=== PATIENT | male | born 1990 | race Caucasian/White ===

== ENCOUNTER 2016-04-30 11:52 | Emergency (ER) | payer BC ==
[2016-04-30 11:59] VITALS: TEMP 99
--- NOTE | 2016-04-30 12:11 | EDPHY ---
H & P Stated Complaint: URI sxs,fatigue, fever since last week;currently under tx for leukemia Time Seen by Provider: 04/30/16 12:10 - Personal History Current Tetanus Diphtheria and Acellular Pertussis (TDAP): Yes Tetanus Vaccine Date: 2011 - Medical/Surgical History Hx Asthma: No Hx Chronic Respiratory Disease: No Hx Diabetes: No Hx Cardiac Disease: No Hx Renal Disease: No Hx Cirrhosis: No Hx Alcoholism: No Hx HIV/AIDS: No Hx Splenectomy or Spleen Trauma: No Other PMH: pmh:FACIAL MIGRAINES 2014. PSH: DENTAL. wisdom tooth removed 2011, anxiety-pt on zoloft, Acute Lymphoblastic leukemia. ALL, induction ctx started 07/2014 - Social History Smoking Status: Never smoked Constitutional: Initial Vital Signs Temperature (C) 37.2 C 04/30/16 11:55 Heart Rate 107 H 04/30/16 11:55 Respiratory Rate 18 04/30/16 11:55 Blood Pressure 136/88 H 04/30/16 11:55 O2 Sat (%) 95 04/30/16 11:55 O2 Delivery Mode Room Air Allergies/Adverse Reactions: No Known Allergies Allergy (Verified 04/30/16 11:59) Home Medications: Medication Instructions Recorded Sertraline HCl [Zoloft 50mg (*)] 8 mg PO DAILY 07/07/14 Acyclovir [Zovirax 200 mg (*)] 200 mg PO BID 08/11/14 LORazepam [Ativan (*)] 0.5 mg PO Q4 PRN 08/11/14 levOFLOXACIN [levAQUIN (*)] 500 mg PO DAILY 08/11/14 Fluconazole [Diflucan (*)] 100 mg PO HS 10/17/14 Methotrexate IV 11/15/15 HYDROcodone/HOMATROPINE HYCODA 1 tsp PO Q4-6PRN PRN #120 ml 04/30/16 [Hycodan Syrup (RX)] Mercaptopurine [Purinethol 50 mg 50 mg PO 04/30/16 (*)] Medical Decision Making ED Course/Re-evaluation: CHIEF COMPLAINT: Cough and fever HISTORY OF PRESENT ILLNESS: 25-year-old gentleman who has had a cough and mild fever for 2-3 days. The fevers been about 100-101. He is currently being treated with intrathecal chemotherapeutic an oral chemotherapeutic for leukemia. His last treatment was a couple of weeks ago. He denies any significant systemic illness except for some mild fever. He states that he is on Levaquin, acyclovir, fluconazole as prophylactic medicines. His doctor wanted him to be checked because the cough was becoming slightly more persistent. REVIEW OF SYSTEMS: A 10 point review of systems was performed and is negative with the exception of the elements mentioned in the history of present illness. PHYSICAL EXAM: HR, BP, O2 Sat, RR. Temp noted General Appearance: Alert, well hydrated, appropriate, and non-toxic appearing. Head: Atraumatic without scalp tenderness or obvious injury Eyes: Pupils equal, round, reactive to light and accommodation, EOMI, no trauma , no injection. Ears: Clear bilaterally, no perforation, normal landmarks Nose: Atraumatic, no rhinorrhea, clear. Throat: There is no erythema or exudates, no lesions, normal tonsils, mucus membranes moist. Neck: Supple, 2+ carotid upstroke, nontender, no lymphadenopathy. Respiratory: No retractions, no distress, no wheezes, and no accessory muscle use. Lungs are clear to auscultation bilaterally. Cardiovascular: Regular rate and rhythm, no murmurs, rubs, or gallops. Bilateral carotid, radial, dorsalis pedis, and posterior tibial pulses intact. Good capillary refill all extremities. Gastrointestinal: Abdomen is soft, nontender, non-distended, no masses, no rebound, no guarding, no peritoneal signs. Musculoskeletal: Normal active ROM of all extremities, atraumatic. Neurological: Alert, appropriate, and interactive. The patient has normal DTRs and non-focal cranial nerves, motor, sensory, and cerebellar exam. Skin: No rashes, good turgor, no nodules on palpation. Past medical history: Leukemia Past surgical history: Surgery related to the kidney Family history: Noncontributory Social history: , employed, does not abuse tobacco drugs or alcohol DIAGNOSTICS/PROCEDURES/CRITICAL CARE TIME: Study: PA and Lateral Chest X-ray Indication: cough Results: After viewing the images myself on the PACS system. My interpretation of the images is: no acute process. Dr. Colin agrees. I have discussed the above x-rays with the radiologist. DIFFERENTIAL DIAGNOSIS: The differential diagnosis for the patient's fever included but was not limited to pneumonia, urinary tract infection, viral syndrome, meningitis, and sepsis. MEDICAL DECISION MAKING: This patient does not appear systemically ill. He is in no acute distress. Laboratory studies are pending so that I can panel beater his level of immunocompromise. Patient's WBC is low around 1, however he is afebrile and not ill-appearing here. Chest x-ray is negative. I discussed these results with the patient and recommend discharge home and follow up with his oncologist tomorrow. He notes that he has been sick before during therapy and does not feel similarly sick today. He will be given Hycodan elixir to use as needed for cough. He agrees with this plan. Return precautions given. - Data Points Laboratory Results: Laboratory Results 04/30/16 12:30 04/30/16 12:30 04/30/16 12:30 WBC 1.02 L 10^3/uL (3.80-9.50) RBC 4.05 L 10^6/uL (4.40-6.38) Hgb 13.7 g/dL (13.7-17.5) Hct 40.6 % (40.0-51.0) MCV 100.2 H fL (81.5-99.8) MCH 33.8 pg (27.9-34.1) MCHC 33.7 g/dL (32.4-36.7) RDW 15.1 % (11.5-15.2) Plt Count 152 10^3/uL (150-400) MPV 9.7 fL (8.7-11.7) Neut % (Auto) Not Reported Lymph % (Auto) Not Reported [place] % (Auto) Not Reported Eos % (Auto) Not Reported Baso % (Auto) Not Reported Nucleat RBC Rel Count 0.0 % (0.0-0.2) Absolute Neuts (auto) Not Reported Absolute Lymphs (auto) Not Reported Absolute Monos (auto) Not Reported Absolute Eos (auto) Not Reported Absolute Basos (auto) Not Reported Absolute Nucleated RBC 0.00 10^3/uL (0-0.01) Immature Gran % Not Reported Immature Gran # Not Reported Platelet Estimate Pending PT 15.2 H SEC (12.0-15.0) INR 1.20 H (0.83-1.16) APTT 41.5 H SEC (23.0-38.0) VBG Lactic Acid 2.0 mmol/L (0.7-2.1) Sodium 142 mEq/L (134-144) Potassium 4.1 mEq/L (3.5-5.2) Chloride 104 mEq/L (97-110) Carbon Dioxide 28 mEq/l (22-31) Anion Gap 10 mEq/L (8-16) BUN 11 mg/dL (7-23) Creatinine 0.6 L mg/dL (0.7-1.3) Estimated GFR > 60 Glucose 128 H mg/dL (70-100) Calcium 9.1 mg/dL (8.5-10.4) Total Bilirubin 2.3 H mg/dL (0.1-1.4) Conjugated Bilirubin 0.7 H mg/dL (0.0-0.5) Unconjugated Bilirubin 1.6 H mg/dL (0.0-1.1) Departure - Departure Disposition: Home, Routine, Self-Care Clinical Impression: Leukemia, Cough, Viral syndrome Condition: Good Instructions: Viral Syndrome (ED) Additional Instructions: 1. Continue all medications as directed. 2. Follow up with your oncologist tomorrow. 3. Return for worsening of condition. Referrals: Jeffry Last MD [Primary Care Provider] - As per Instructions
[2016-04-30 12:57] LABS: INR 1.2 (0.83-1.16); PROTIME(PATIENT) 15.2 SEC (12.0-15.0)
[2016-04-30 12:58] LABS: APTT 41.5 SEC (23.0-38.0)
[2016-04-30 13:21] LABS: ADD DIFF? YES; ADD MORPH? NO; ADD SCAN? NO; ANION GAP 10 mEq/L (8-16); ATYPICAL LYMPHOCYTE FLAG 40 (0-99); BILIRUBIN,TOTAL 2.3 mg/dL (0.1-1.4); CALCIUM 9.1 mg/dL (8.5-10.4); CARBON DIOXIDE 28 mEq/l (22-31); CHLORIDE 104 mEq/L (97-110); CREATININE 0.6 mg/dL (0.7-1.3); FRAGMENT RBC FLAG 0 (0-99); GLOMERULAR FILTRATION RATE > 60; GLUCOSE 128 mg/dL (70-100); HEMATOCRIT 40.6 % (40.0-51.0); HEMOGLOBIN 13.7 g/dL (13.7-17.5); LEFT SHIFT FLG 90 (0-99); LIPEMIA HEMOLYSIS FLAG 80 (0-99); MEAN CELL HEMOGLOBIN 33.8 pg (27.9-34.1); MEAN CELL HEMOGLOBIN CONCENTR. 33.7 g/dL (32.4-36.7); MEAN CELL VOLUME 100.2 fL (81.5-99.8); MEAN PLATELET VOLUME 9.7 fL (8.7-11.7); PLATELET CLUMPS FLAG 0 (0-99); PLATELET COUNT 152 10^3/uL (150-400); POTASSIUM 4.1 mEq/L (3.5-5.2); RED BLOOD CELL COUNT 4.05 10^6/uL (4.40-6.38); RED CELL DISTRIBUTION WIDTH 15.1 % (11.5-15.2); SODIUM 142 mEq/L (134-144)
[2016-04-30 13:38] LABS: BILIRUBIN-CONJUGATED 0.7 mg/dL (0.0-0.5); BILIRUBIN-UNCONJUGATED 1.6 mg/dL (0.0-1.1)
--- NOTE | 2016-04-30 13:48 | DX ---
Chest, PA and Lateral April 30, 2016 History: History of leukemia. Fever and cough. Comparison: December 2014. Findings: A right Deeadj-h-Xrit catheter is seen in stable position with its tip in the superior vena cava. Heart size is within normal limits. Pulmonary vascularity appears normal. The lungs are clear. No evidence for pleural effusion or pneumothorax. No significant osseous abnormality. Impression: No evidence for acute cardiopulmonary abnormality.
[2016-04-30 14:12] VITALS: BP 123/79; PULSE 85; RESP 12; O2SAT 94
[2016-04-30 15:44] LABS: ELLIPTOCYTES 1+; PLATELET ESTIMATE ADEQUATE (ADEQ); POLYCHROMASIA 1+
[2016-04-30 15:46] LABS: SCHISTOCYTES 1+
== END 2016-04-30 14:17 | disposition home or self-care (01) ==
DX: B34.9 Viral infection, unspecified (principal); C95.90 Leukemia, unspecified not having achieved remission

== ENCOUNTER → 2016-05-09 | Outpatient (CLI) | payer BC ==
[~2016-05-09] MED LIST: LIDOCAINE 1% 30 ML SDV ONE; METHOTREXATE SODIUM IT ONE; NA BICARBONATE 50 MEQ/50 ML VIAL ONE; NS IT ONE
[2016-05-09 10:56] LABS: CSF APPEARANCE CLEAR (CLEAR); CSF COLOR COLORLESS (COLORLESS); WBC, CSF 0 /mm3 (0-5)
[2016-05-09 11:23] LABS: PROTEIN, CSF 20 mg/dL (12-60)
--- NOTE | 2016-05-09 11:57 | DX ---
Fluoroscopically Guided Lumbar Puncture and Intrathecal Chemotherapy Administration History: Acute lymphoblastic leukemia . Crosscutting Measure #226: Current tobacco user: No. Comparison: Lumbar puncture February 14, 2016. Procedure: Prior to the procedure, the risks and benefits, including headache, infection, and bleedin g were explained to the patient and informed written consent was obtained. An area over L2-L3 was ma rked then prepped and draped in the usual sterile fashion. Buffered lidocaine was administered super ficially for local anesthesia. Using intermittent fluoroscopic observation, a 25-gauge Cristine spina l needle was advanced into the thecal sac. 12 mL of clear CSF was obtained and sent for labs. Subseq uently, 15 mg methotrexate was administered slowly. The needle was removed and a bandage applied. Th e patient tolerated the procedure well with no immediate complications. 0.2 minutes of fluoroscopy were utilized. Dose= 1.5 mGy. Impression: Fluoroscopically guided lumbar puncture and intrathecal chemotherapy administration as ab ove.
[2016-05-11 09:48] LABS: FINAL DIAGNOSIS See Comments (()); MICROSCOPIC DESCRIPTION See Comments (()); SPECIAL STUDIES See Comments (())
== END ==
LOC: FIMAGING 09:09
PROVIDERS: ATTEND Internal Medicine Hematology & Oncology
DX: Z51.11 Encounter for antineoplastic chemotherapy (principal); C91.00 Acute lymphoblastic leukemia not having achieved remission
CPT/HCPCS: 85060-90; 88184-90; 88185-91; J9250

== ENCOUNTER → 2016-08-01 | Outpatient (CLI) | payer BC, OTHER | LOC: FIMAGING 09:03 | PROVIDERS: ATTEND Internal Medicine Hematology & Oncology | PROC: 3E0R305 Introduction of Other Antineoplastic into Spinal Canal, Percutaneous Approach (ICD-10-PCS; principal; 2016-08-01) | DX: Z51.11 Encounter for antineoplastic chemotherapy (principal); C91.00 Acute lymphoblastic leukemia not having achieved remission | CPT/HCPCS: J9250 ==

== ENCOUNTER 2016-08-09 01:56 | Emergency (ER) | payer BC, OTHER ==
[2016-08-09 02:01] VITALS: RESP 16; TEMP 98.4; O2SAT 96
[2016-08-09] MEDS ORDERED: NS 1,000 ML IV ONE (02:07)
[2016-08-09] MEDS ORDERED: ONDANSETRON 4 MG/2 ML VIAL ONE (02:10)
[2016-08-09] MEDS ORDERED: FAMOTIDINE 20 MG TAB PO ONE (02:24)
[2016-08-09] MEDS ORDERED: ONDANSETRON 4 MG/2 ML VIAL IVP ONE ×2 (02:24)
[2016-08-09] MEDS ORDERED: HYDROmorphONE/DILAUDID 1 MG/ML SYR IVP ONE (02:24)
--- NOTE | 2016-08-09 02:24 | EDPHY ---
H & P Stated Complaint: ABD PAIN AND VOMITING HX OF PANCREATITIS Time Seen by Provider: 08/09/16 02:04 HPI/ROS: HPI The patient presents with abdominal pain associated with nausea and vomiting. He has had mild pain for the last several days since starting his steroids which he takes is part of his chemotherapy for ALL. However, the pain became severe tonight and he could not get comfortable. It is a sharp pain in his upper abdomen that comes in waves, it is moderate in severity and actually has improved since his arrival in the ER. REVIEW OF SYSTEMS Constitutional: No fever, no chills. Eyes: No discharge. ENT: No sore throat. Cardiovascular: No chest pain, no palpitations. Respiratory: No cough, no shortness of breath. Gastrointestinal: See HPI Genitourinary: No hematuria. Musculoskeletal: No back pain. Skin: No rashes. Neurological: No headache. PMHx: ALL on chemotherapy PHYSICAL General Appearance: Alert, no distress Eyes: Pupils equal and round no pallor or injection ENT, Mouth: Mucous membranes moist Respiratory: There are no retractions, lungs are clear to auscultation Cardiovascular: Regular rate and rhythm Gastrointestinal: Abdomen is soft and with mild tenderness in the epigastrium, no masses Neurological: A&O, moves all extremities Skin: Warm and dry, no rashes Musculoskeletal: Neck is supple non tender Extremities: symmetrical, full range of motion Psychiatric: Patient is oriented X 3, there is no agitation Source: Patient Exam Limitations: No limitations - Personal History Current Tetanus/Diphtheria Vaccine: Yes Current Tetanus Diphtheria and Acellular Pertussis (TDAP): Yes Tetanus Vaccine Date: 2011 - Medical/Surgical History Hx Asthma: No Hx Chronic Respiratory Disease: No Hx Diabetes: No Hx Cardiac Disease: No Hx Renal Disease: No Hx Cirrhosis: No Hx Alcoholism: No Hx HIV/AIDS: No Hx Splenectomy or Spleen Trauma: No Other PMH: pmh:FACIAL MIGRAINES 2014. PSH: DENTAL. wisdom tooth removed 2011, anxiety-pt on zoloft, Acute Lymphoblastic leukemia, pancreatitis. ALL, induction ctx started 07/2014 - Social History Smoking Status: Never smoked Constitutional: Initial Vital Signs Temperature (C) 36.9 C 08/09/16 01:59 Heart Rate 77 08/09/16 01:59 Respiratory Rate 16 08/09/16 01:59 Blood Pressure 111/79 08/09/16 01:59 O2 Sat (%) 96 08/09/16 01:59 O2 Delivery Mode Room Air Allergies/Adverse Reactions: No Known Allergies Allergy (Verified 08/09/16 02:01) Home Medications: Medication Instructions Recorded Sertraline HCl [Zoloft 50mg (*)] 8 mg PO DAILY 07/07/14 Acyclovir [Zovirax 200 mg (*)] 200 mg PO BID 08/11/14 LORazepam [Ativan (*)] 0.5 mg PO Q4 PRN 08/11/14 Fluconazole [Diflucan (*)] 100 mg PO HS 10/17/14 Methotrexate IV 11/15/15 Mercaptopurine [Purinethol 50 mg 50 mg PO 04/30/16 (*)] morphINE IR [morphINE IR 15 mg (*)] 15 mg PO Q4H PRN #10 tab 08/09/16 Medical Decision Making Differential Diagnosis: This is a 25-year-old male with history ALL who presents from home with abdominal pain, consistent with prior pancreatitis episodes which seems to be steroid induced. Differential diagnosis includes pancreatitis, gastritis, less likely hepatitis. In the emergency room, the patient was given IV fluids for hypovolemia, antiemetics and pain medicine with improvement in his symptoms. Labs were checked and did reveal an elevated lipase consistent with pancreatitis. Liver tests were also elevated and because of this, bedside right upper quadrant ultrasound was performed which showed no evidence of gallstones. The patient was discharged from the emergency room with pain medication and instructions to take Tylenol as needed for pain. - Data Points Laboratory Results: Laboratory Results 08/09/16 02:15 08/09/16 02:15 08/09/16 08/09/16 02:15 02:15 WBC 1.64 10^3/uL L 10^3/uL (3.80-9.50) RBC 4.38 10^6/uL L 10^6/uL (4.40-6.38) Hgb 13.2 g/dL L g/dL (13.7-17.5) Hct 38.7 % L % (40.0-51.0) MCV 88.4 fL fL (81.5-99.8) MCH 30.1 pg pg (27.9-34.1) MCHC 34.1 g/dL g/dL (32.4-36.7) RDW 12.8 % % (11.5-15.2) Plt Count 159 10^3/uL 10^3/uL (150-400) MPV 10.4 fL fL (8.7-11.7) Neut % (Auto) Not Reported Lymph % (Auto) Not Reported [place] % (Auto) Not Reported Eos % (Auto) Not Reported Baso % (Auto) Not Reported Nucleat RBC Rel Count 0.0 % % (0.0-0.2) Absolute Neuts (auto) Not Reported Absolute Lymphs (auto) Not Reported Absolute Monos (auto) Not Reported Absolute Eos (auto) Not Reported Absolute Basos (auto) Not Reported Absolute Nucleated RBC 0.00 10^3/uL 10^3/uL (0-0.01) Immature Gran % Not Reported Seg Neutrophils % 57 % % Band Neutrophils % 8 % % Lymphocytes % 13 % % Monocytes % 9 % % Eosinophils % 11 % % Metamyelocytes % 1 % % Myelocytes % 1 % % Immature Gran # Not Reported Absolute Seg Neuts 0.93 10^/uL L 10^/uL (1.70-6.50) Absolute Band Neuts 0.13 10^3/uL 10^3/uL (0.00-0.70) Absolute Lymphocytes 0.21 10^3/uL L 10^3/uL (1.00-3.00) Absolute Monocytes 0.15 10^3/uL L 10^3/uL (0.30-0.80) Absolute Eosinophils 0.18 10^3/uL 10^3/uL (0.03-0.40) Absolute Metamyelocyte 0.02 10^3/mL H 10^3/mL (0.00-0.00) Absolute Myelocytes 0.02 10^3/mL H 10^3/mL (0.00-0.00) Toxic Granulation PRESENT H Platelet Estimate ADEQUATE (ADEQ) Large Platelets PRESENT H Microcytic Cells 1+ H Elliptocytes 1+ H Smear Review By Pending Sodium 136 mEq/L mEq/L (134-144) Potassium 3.6 mEq/L mEq/L (3.5-5.2) Chloride 101 mEq/L mEq/L (97-110) Carbon Dioxide 28 mEq/l mEq/l (22-31) Anion Gap 7 mEq/L L mEq/L (8-16) BUN 16 mg/dL mg/dL (7-23) Creatinine 0.5 mg/dL L mg/dL (0.7-1.3) Estimated GFR > 60 Glucose 119 mg/dL H mg/dL (70-100) Calcium 8.9 mg/dL mg/dL (8.5-10.4) Total Bilirubin 1.9 mg/dL H mg/dL (0.1-1.4) Conjugated Bilirubin 0.3 mg/dL mg/dL (0.0-0.5) Unconjugated Bilirubin 1.6 mg/dL H mg/dL (0.0-1.1) AST 100 IU/L H IU/L (17-59) ALT 244 IU/L H IU/L (21-72) Alkaline Phosphatase 108 IU/L IU/L (38-126) Total Protein 5.7 g/dL L g/dL (6.3-8.2) Albumin 3.6 g/dL g/dL (3.5-5.0) Lipase 3836.0 IU/L H IU/L (23-300) Medications Given: Discontinued Medications Famotidine (Pepcid) 20 mg PO EDNOW ONE Stop: 08/09/16 02:25 Last Admin: 08/09/16 02:38 Dose: Not Given Famotidine (Pepcid) 20 mg IVP EDNOW ONE Stop: 08/09/16 02:38 Last Admin: 08/09/16 02:38 Dose: 20 mg Hydromorphone HCl (Dilaudid) 0.5 mg IVP EDNOW ONE Stop: 08/09/16 02:25 Last Admin: 08/09/16 02:38 Dose: 0.5 mg Sodium Chloride (Ns) 1,000 mls @ 0 mls/hr IV ONCE ONE PRN Reason: Wide Open Stop: 08/09/16 02:08 Last Admin: 08/09/16 02:28 Dose: 1,000 mls Ondansetron HCl (Zofran) 4 mg IVP EDNOW ONE Stop: 08/09/16 02:25 Last Admin: 08/09/16 02:29 Dose: Not Given Ondansetron HCl (Zofran) 4 mg IVP EDNOW ONE Stop: 08/09/16 02:25 Last Admin: 08/09/16 02:28 Dose: 4 mg Departure - Departure Disposition: Home, Routine, Self-Care Clinical Impression: Pancreatitis, acute Qualifiers: Pancreatitis type: other Acute pancreatitis complication: unspecified Qualified Code(s): K85.80 - Other acute pancreatitis without necrosis or infection Condition: Good Instructions: Pancreatitis (ED), Clear Liquid Diet (ED) Additional Instructions: Please take a clear diet until you're feeling better. Then you can start eating bland foods until you're feeling completely better. Take Tylenol 1 g every 6 hours as needed for pain. If the pain is more severe you can take the prescription pain medicine I am discharging you with. Referrals: Jeffry Last MD [Primary Care Provider] - As per Instructions Prescriptions: morphINE IR [morphINE IR 15 mg (*)] 15 mg PO Q4H PRN #10 tab PRN Reason: Pain, Breakthrough
[2016-08-09 02:30] LABS: ADD DIFF? YES; ADD MORPH? NO; ATYPICAL LYMPHOCYTE FLAG 0 (0-99); FRAGMENT RBC FLAG 0 (0-99); HEMATOCRIT 38.7 % (40.0-51.0); HEMOGLOBIN 13.2 g/dL (13.7-17.5); LIPEMIA HEMOLYSIS FLAG 90 (0-99); MEAN CELL HEMOGLOBIN 30.1 pg (27.9-34.1); MEAN CELL HEMOGLOBIN CONCENTR. 34.1 g/dL (32.4-36.7); MEAN CELL VOLUME 88.4 fL (81.5-99.8); MEAN PLATELET VOLUME 10.4 fL (8.7-11.7); PLATELET CLUMPS FLAG 0 (0-99); PLATELET COUNT 159 10^3/uL (150-400); RED BLOOD CELL COUNT 4.38 10^6/uL (4.40-6.38); RED CELL DISTRIBUTION WIDTH 12.8 % (11.5-15.2)
[2016-08-09 02:33] LABS: ADD SCAN? NO; LEFT SHIFT FLG 110 (0-99)
[2016-08-09] MEDS ORDERED: FAMOTIDINE 20 MG/2 ML SDV ONE (02:33)
[2016-08-09] MEDS ORDERED: FAMOTIDINE 20 MG/2 ML SDV IVP ONE (02:37)
[2016-08-09 02:39] LABS: ALANINE AMINOTRANSFERASE 244 IU/L (21-72); ALBUMIN 3.6 g/dL (3.5-5.0); ALKALINE PHOSPHATASE 108 IU/L (38-126); ANION GAP 7 mEq/L (8-16); ASPARTATE AMINOTRANSFERASE 100 IU/L (17-59); BILIRUBIN,TOTAL 1.9 mg/dL (0.1-1.4); BILIRUBIN-CONJUGATED 0.3 mg/dL (0.0-0.5); BILIRUBIN-UNCONJUGATED 1.6 mg/dL (0.0-1.1); CALCIUM 8.9 mg/dL (8.5-10.4); CARBON DIOXIDE 28 mEq/l (22-31); CHLORIDE 101 mEq/L (97-110); CREATININE 0.5 mg/dL (0.7-1.3); GLOMERULAR FILTRATION RATE > 60; GLUCOSE 119 mg/dL (70-100); POTASSIUM 3.6 mEq/L (3.5-5.2); SODIUM 136 mEq/L (134-144); TOTAL PROTEIN 5.7 g/dL (6.3-8.2)
[2016-08-09 03:29] VITALS: BP 113/68; PULSE 72
[2016-08-09 03:39] LABS: ELLIPTOCYTES 1+; LARGE PLATELETS PRESENT; MICROCYTES 1+; PLATELET ESTIMATE ADEQUATE (ADEQ); TOXIC GRANULATION PRESENT
== END 2016-08-09 03:30 | disposition home or self-care (01) ==
DX: K85.80 Other acute pancreatitis without necrosis or infection (principal); C91.00 Acute lymphoblastic leukemia not having achieved remission
CPT/HCPCS: 96374; J1170; J2405

== ENCOUNTER → 2016-10-30 | Outpatient (CLI) | payer BC ==
[~2016-10-30] MED LIST changes: -LIDOCAINE 1% 30 ML SDV ONE; +LIDOCAINE 1% 300 MG/30 ML SDV ONE; -NA BICARBONATE 50 MEQ/50 ML VIAL ONE
[2016-10-30 12:54] LABS: CSF APPEARANCE CLEAR (CLEAR); CSF COLOR COLORLESS (COLORLESS); CSF SUPERNATANT COLORLESS (COLORLESS); WBC, CSF 0 /mm3 (0-5)
[2016-10-30 13:21] LABS: PROTEIN, CSF 17 mg/dL (12-60)
[2016-10-31 16:14] LABS: FINAL DIAGNOSIS See Comments; MICROSCOPIC DESCRIPTION See Comments; SPECIAL STUDIES See Comments
== END ==
LOC: FIMAGING 10:21
PROVIDERS: ATTEND Internal Medicine Hematology & Oncology
PROC: 3E0R305 Introduction of Other Antineoplastic into Spinal Canal, Percutaneous Approach (ICD-10-PCS; principal; 2016-10-30)
DX: Z51.11 Encounter for antineoplastic chemotherapy (principal); C91.00 Acute lymphoblastic leukemia not having achieved remission
CPT/HCPCS: 85060-90; 88184-90; 88185-91; J9250

== ENCOUNTER → 2017-01-29 | Outpatient (CLI) | payer BC | LOC: FIMAGING 09:01 | PROVIDERS: ATTEND Internal Medicine Hematology & Oncology | PROC: 3E0R305 Introduction of Other Antineoplastic into Spinal Canal, Percutaneous Approach (ICD-10-PCS; principal; 2017-01-29) | DX: Z51.11 Encounter for antineoplastic chemotherapy (principal); C91.00 Acute lymphoblastic leukemia not having achieved remission | CPT/HCPCS: J9250 ==

== ENCOUNTER → 2017-04-27 | Outpatient (CLI) | payer BC ==
[~2017-04-27] MED LIST changes: -METHOTREXATE SODIUM IT ONE; +METHOTREXATE SODIUM/PF 15 MG in NS (SYRINGE) 3 ML IT ONE; -NS IT ONE
[2017-04-27 09:48] LABS: INR 1.23 (0.83-1.16); PROTIME(PATIENT) 15.7 SEC (12.0-15.0)
== END ==
LOC: FIMAGING 08:52
PROVIDERS: ATTEND Internal Medicine Hematology & Oncology
PROC: 009U3ZX Drainage of Spinal Canal, Percutaneous Approach, Diagnostic (ICD-10-PCS; principal; 2017-04-27)
DX: C91.90 Lymphoid leukemia, unspecified not having achieved remission (principal)
CPT/HCPCS: J9250

== ENCOUNTER → 2017-06-01 | Outpatient (CLI) | payer BC | LOC: FIMAGING 09:28 | PROVIDERS: ATTEND Internal Medicine Hematology & Oncology | DX: K80.20 Calculus of gallbladder without cholecystitis without obstruction (principal); K86.3 Pseudocyst of pancreas ==

== ENCOUNTER → 2017-06-12 | Outpatient (CLI) | payer BC | LOC: FIMAGING 12:43 | PROVIDERS: ATTEND Internal Medicine Hematology & Oncology | DX: K82.8 Other specified diseases of gallbladder (principal) | CPT/HCPCS: 78227; A9537 ==

== ENCOUNTER 2017-07-13 07:04 | Day surgery (SDC) | payer BC ==
[2017-07-13] MEDS ORDERED: LIDOCAINE 1% 2 ML INJ ID PRN (07:28)
[2017-07-13] MEDS ORDERED: ceFAZolin 2 GM/SWFI 2 GM/20 ML SYR IVP ONE (07:28)
[2017-07-13] MEDS ORDERED: LR 1,000 ML IV ONE (07:28)
[2017-07-13] MEDS ORDERED: fentaNYL 100 MCG/2 ML INJ IVP PRN (07:51)
[2017-07-13] MEDS ORDERED: HYDROmorphONE/DILAUDID 1 MG/ML INJ IVP PRN (07:51)
[2017-07-13] MEDS ORDERED: NALOXONE HCL 0.4 MG/ML INJ IVP PRN (07:51)
[2017-07-13] MEDS ORDERED: ALBUTEROL 3 ML DEYVIAL IH PRN (07:51)
[2017-07-13] MEDS ORDERED: ONDANSETRON 4 MG/2 ML VIAL IVP PRN ×2 (07:51→09:50)
[2017-07-13] MEDS ORDERED: DEXAMETHASONE 4 MG/ML VIAL IVP PRN (07:51)
[2017-07-13] MEDS ORDERED: MIDAZOLAM 2 MG/2 ML VIAL IVP ONE (07:51)
[2017-07-13] MEDS ORDERED: HYDROCODONE/APAP 5/325 TAB PO PRN (07:51)
--- NOTE | 2017-07-13 07:53 | PDANEPAE ---
ANE History of Present Illness Neto Leal HEAVEN Past Medical History - Cardiovascular History Hx Hypertension: No Hx Arrhythmias: No Hx Chest Pain: No Hx Coronary Artery / Peripheral Vascular Disease: No Hx CHF / Valvular Disease: No Hx Palpitations: No - Pulmonary History Hx COPD: No Hx Asthma/Reactive Airway Disease: No Hx Recent Upper Respiratory Infection: No Hx Oxygen in Use at Home: No Hx Sleep Apnea: No Sleep Apnea Screening Result - Last Documented: Negative Pulmonary History Comment: hx of PE - Neurologic History Hx Cerebrovascular Accident: No Hx Seizures: No Hx Dementia: No - Endocrine History Hx Diabetes: No - Renal History Hx Renal Disorders: No - Liver History Hx Hepatic Disorders: Yes Hepatic History Comment: high bilirubin chronic - Neurological & Psychiatric Hx Hx Neurological and Psychiatric Disorders: Yes Neurological / Psychiatric History Comment: hx of neuropathy chemo induced. anxiety - Cancer History Hx Cancer: Yes Cancer History Comment: Leukemia - Congenital Disorder History Hx Congenital Disorders: No - GI History Hx Gastrointestinal Disorders: Yes Gastrointestinal History Comment: reflux - Other Health History Other Health History: parylised vocal chord - Chronic Pain History Chronic Pain: No - Surgical History Prior Surgeries: port placed ANE Review of Systems Review of Systems: - Exercise capacity METS (RN): 4 METS ANE Patient History - Allergies Allergies/Adverse Reactions: No Known Allergies Allergy (Verified 07/03/17 12:41) - Home Medications Home Medications: Sertraline HCl [Zoloft 50mg (*)] 50 mg PO DAILY 07/07/14 [Last Taken 01/13/15] Acyclovir [Zovirax 200 mg (*)] 200 mg PO BID 08/11/14 [Last Taken 01/13/15] LORazepam [Ativan (*)] 0.5 mg PO Q4 PRN 08/11/14 [Last Taken 01/12/15] Methotrexate PO DAILY 11/15/15 [Last Taken Unknown] Mercaptopurine [Purinethol 50 mg (*)] 50 mg PO 04/30/16 [Last Taken Unknown] - Smoking Hx Smoking Status: Never smoked - Family Anes Hx Family Hx Anesthesia Complications: none ANE Labs/Vital Signs - Vital Signs Height: 177.8 cm Weight: 74.843 kg ANE Physical Exam - Airway Neck exam: FROM Mallampati Score: Class 2 - Pulmonary Pulmonary: clear to auscultation - Cardiovascular Cardiovascular: regular rate and rhythym - ASA Status ASA Status: III ANE Anesthesia Plan Anesthesia Plan: general endotracheal anesthesia
[2017-07-13] MEDS ORDERED: BUPIVACAINE 0.25% 30 ML SDV ONE (08:01)
[2017-07-13] MEDS ORDERED: IOTHALAMATE MEG (CONRAY) 50 ML VIAL IV ONE (08:02)
--- NOTE | 2017-07-13 08:07 | PDHPUP ---
History & Physical Update H&P update statement: This history and physical update is based on an assessment of the patient which was completed after admission or registration (within 24 hours), but prior to the surgery/procedure. H&P update: no change in patient's condition since H&P completed, changes noted
[2017-07-13] MEDS ORDERED: fentaNYL 100 MCG/2 ML INJ ONE ×2 (08:21→09:21)
[2017-07-13] MEDS ORDERED: PROPOFOL 200 MG/20 ML VIAL ONE (08:21)
[2017-07-13] MEDS ORDERED: DEXAMETHASONE 4 MG/ML VIAL ONE (08:38)
[2017-07-13] MEDS ORDERED: ONDANSETRON 4 MG/2 ML VIAL ONE ×2 (08:38→10:03)
[2017-07-13] MEDS ORDERED: ROCURONIUM 50 MG/5 ML VIAL ONE (08:38)
--- NOTE | 2017-07-13 09:42 | POSTANESTH ---
Post Anesthetic Evaluation Cardiovascular Status: Normal, Stable Respiratory Status: Normal, Stable Level of Consciousness/Mental Status: Alert and Oriented Pain Control: Adequate, Prn Tx Ordered Nausea/Vomiting Control: Adequate, Prn Tx Ordered Complications Possibly Related to Anesthesia: None Noted
--- NOTE | 2017-07-13 09:49 | POSTOPPROG ---
Post Op Note Date of Operation: 07/13/17 Surgeon: Sai Case (, FACS) Anesthesia: GET(General Endotracheal) Pre-op Diagnosis: cholecystitis, chronic Procedure: lap gus/IOC Findings: normal IOC Inf/Abcess present in the surg proc area at time of surgery?: No EBL: Minimal (10 ml)
[2017-07-13] MEDS ORDERED: OXYCODONE/APAP 5/325 TAB PO PRN (09:50)
[2017-07-13] MEDS ORDERED: SENNOSIDES/DOCUSATE SODIUM TAB PO SCH (10:00)
[2017-07-13 11:31] VITALS: BP 108/74
--- NOTE | 2017-07-13 13:17 | GOP ---
[f rep st] OPERATIVE REPORT DATE OF OPERATION: 07/13/2017 SURGEON: Sai aCse MD MANAGEMENT TRAIN[employer] MARKETING: JOSE ENRIQUE Holley ANESTHESIA: General endotracheal. ANESTHESIOLOGIST: Ion Girard DO. PREOPERATIVE DIAGNOSIS: 1. Cholelithiasis and chronic cholecystitis. 2. Pancreatitis. 3. Acute lymphocytic leukemia status post chemotherapy. POSTOPERATIVE DIAGNOSIS: 1. Cholelithiasis and chronic cholecystitis. 2. Pancreatitis. 3. Acute lymphocytic leukemia status post chemotherapy. PROCEDURE PERFORMED: Laparoscopic cholecystectomy with operative cholangiogram. FINDINGS: Mildly inflamed gallbladder with mild hepatic steatosis. Normal intraoperative cholangiog uriel. Gallbladder submitted for permanent section. ESTIMATED BLOOD LOSS: 10 cc. DESCRIPTION OF PROCEDURE: After informed consent was obtained, the patient was brought to the operating room and placed under g eneral anesthesia. The abdomen was prepped and draped in the usual fashion. Before proceeding, a ti me-out and identification of the patient was performed. Then, 0.25% Marcaine was used to infiltrate all incision sites. A transverse incision was made below the umbilicus and carried through the skin and subcutaneous tissues. Ventral traction was applied t o the abdominal wall and a Veress needle was introduced into the peritoneal cavity. Position was con firmed by saline infusion. A pneumoperitoneum was established with CO2 gas to a pressure of 15 mmHg. The Veress needle was withdrawn and replaced with a 12 mm bladeless trocar. A 30 degree scope was introduced and the peritoneal cavity was visualized. Additional 5 mm ports were placed in subxiphoid position. A 5 mm port was placed in the right upper quadrant midclavicular line and a third 5 mm po rt was placed in the right upper quadrant anterior axillary line. This allowed introduction of atrau matic grasping forceps. The gallbladder was retracted by the fundus cephalad elevating the liver edg e. Adhesions from the omentum and gallbladder were taken down. The infundibulum of the gallbladder was manipulated anteriorly and posteriorly and the Harmonic Scalpel used to dissect away the peritone um from the cystic duct and cystic artery. The cystic artery was divided with the Harmonic Scalpel. The cystic duct was hemoclipped, incised part way between the gallbladder and common bile duct and a taut cholangiogram catheter was introduced into the cystic duct and secured with a hemoclip. The ch olangiogram was obtained with live fluoroscopy and showed free flow of contrast into the duodenum wit h no filling defects. The cholangiogram catheter was removed. The duct was doubly hemoclipped and d ivided. The gallbladder was then dissected away from the liver edge using the Harmonic Scalpel with minimal bleeding. The gallbladder was retrieved through the umbilical port site and the operative fi eld appeared hemostatic. The umbilical fascial defect was repaired with a Kvng Schuler transfasci al needle and 0 Vicryl suture. Subcutaneous tissues were approximated with 3-0 Monocryl suture. The pneumoperitoneum was evacuated. The remaining ports were removed. All port site incisions were vamsi sed with 4-0 Monocryl suture in a subcuticular fashion. Mastisol and Steri-Strips were applied. Ag rile dressings were placed. The patient was returned extubated to the recovery room in satisfactory condition. Needle, sponge, and instrument count correct. COMPLICATIONS: None. /[id number]/MODL
== END 2017-07-13 11:40 | disposition home or self-care (01) ==
LOC: FSGY 07:04
PROVIDERS: ATTEND Surgery
DX: K80.10 Calculus of gallbladder with chronic cholecystitis without obstruction (principal); K85.90 Acute pancreatitis without necrosis or infection, unspecified; C91.00 Acute lymphoblastic leukemia not having achieved remission; K21.9 Gastro-esophageal reflux disease without esophagitis; K76.0 Fatty (change of) liver, not elsewhere classified; Z86.711 Personal history of pulmonary embolism
CPT/HCPCS: J0690; J1100; J1642; J2405; J2704; J3010; Q9961

== ENCOUNTER → 2017-07-20 | Outpatient (CLI) | payer BC ==
[2017-07-20 11:04] LABS: INR 1.02 (0.83-1.16); PROTIME(PATIENT) 13.6 SEC (12.0-15.0)
== END ==
LOC: FIMAGING 08:51
PROVIDERS: ATTEND Radiology Diagnostic Radiology
PROC: 009U3ZX Drainage of Spinal Canal, Percutaneous Approach, Diagnostic (ICD-10-PCS; principal; 2017-07-20)
PROC: B01B1ZZ Fluoroscopy of Spinal Cord using Low Osmolar Contrast (ICD-10-PCS; principal; 2017-07-20)
DX: C90.01 Multiple myeloma in remission (principal)
CPT/HCPCS: 85060-90; 88184-90; 88185-91; J9250